=== PATIENT | male | born 1955 | race Caucasian/White ===

== ENCOUNTER 2016-12-28 06:14 | Emergency (ER) | payer OTHER | END 2016-12-28 06:20 | disposition left against medical advice (07) | LOC: ER1 06:14 | DX: R07.1 Chest pain on breathing (principal); Z79.82 Long term (current) use of aspirin; Z90.49 Acquired absence of other specified parts of digestive tract; Z88.2 Allergy status to sulfonamides | CPT/HCPCS: 36415; 99285 ==

== ENCOUNTER 2016-12-28 09:30 | Emergency (ER) | payer OTHER ==
[2016-12-28 10:30] LABS: HEMOGLOBIN 15.2 gm/dl (14.0-17.5); RED BLOOD COUNT 4.97 M/UL (4.20-5.50)
[2016-12-28 10:44] LABS: BUN/CREATININE RATIO 19 (0-10)
== END 2016-12-28 15:15 | disposition home or self-care (01) ==
LOC: ER1 09:30
PROVIDERS: Emergency Medicine
DX: R94.31 Abnormal electrocardiogram [ECG] [EKG] (principal); Z53.21 Procedure and treatment not carried out due to patient leaving prior to being seen by health care provider
CPT/HCPCS: 71010; 80053; 82550; 82553; 83874; 84484; 85025; 85379; 93005; J1885

== ENCOUNTER → 2020-05-24 | Outpatient (CLI) | payer BC, OTHER ==
[2020-05-24 10:13] LABS: HEMOGLOBIN 15.5 gm/dl (14.0-17.5); RED BLOOD COUNT 5.03 M/UL (4.20-5.50); WHITE BLOOD COUNT 5.3 K/UL (4.5-11.0)
[2020-05-24 10:35] LABS: BUN/CREATININE RATIO 14 (0-10); GAMMA GLUTAMYL TRANSPEPTIDASE 34 U/L (7-64)
== END ==
LOC: LAB 09:36
PROVIDERS: Transplant Surgery
DX: Z79.899 Other long term (current) drug therapy (principal); Z94.4 Liver transplant status
CPT/HCPCS: 36415; 80053; 82977; 83735; 85027

== ENCOUNTER → 2020-07-11 | Outpatient (CLI) | payer BC, OTHER ==
[2020-07-11 10:54] LABS: HEMOGLOBIN 15.1 gm/dl (14.0-17.5); RED BLOOD COUNT 4.98 M/UL (4.20-5.50); WHITE BLOOD COUNT 5.5 K/UL (4.5-11.0)
[2020-07-11 11:12] LABS: BUN/CREATININE RATIO 22 (0-10); GAMMA GLUTAMYL TRANSPEPTIDASE 28 U/L (7-64)
== END ==
LOC: LAB 09:45
PROVIDERS: Transplant Surgery
DX: Z48.23 Encounter for aftercare following liver transplant (principal); Z51.81 Encounter for therapeutic drug level monitoring; Z79.899 Other long term (current) drug therapy
CPT/HCPCS: 80053; 82977; 83735; 85027

== ENCOUNTER → 2020-12-19 | Outpatient (CLI) | payer BC ==
[2020-12-19 12:36] LABS: HEMOGLOBIN 15.9 gm/dl (14.0-17.5); RED BLOOD COUNT 5.12 M/UL (4.20-5.50); WHITE BLOOD COUNT 4.6 K/UL (4.5-11.0)
[2020-12-19 12:54] LABS: BUN/CREATININE RATIO 17 (0-10); GAMMA GLUTAMYL TRANSPEPTIDASE 22 U/L (7-64)
== END ==
LOC: LAB 10:37
PROVIDERS: Transplant Surgery
DX: Z48.23 Encounter for aftercare following liver transplant (principal); Z51.81 Encounter for therapeutic drug level monitoring; Z79.899 Other long term (current) drug therapy
CPT/HCPCS: 36415; 80053; 82977; 83735; 85027

== ENCOUNTER 2021-04-13 18:04 | Emergency (ER) | payer OTHER ==
[2021-04-13] MEDS ORDERED: CEPHALEXIN500 MG PO (20:03)
== END 2021-04-13 20:17 | disposition home or self-care (01) ==
LOC: ER1 18:04
DX: S51.812A Laceration without foreign body of left forearm, initial encounter (principal); Z23 Encounter for immunization; Z87.891 Personal history of nicotine dependence; X58.XXXA Exposure to other specified factors, initial encounter; Y92.89 Other specified places as the place of occurrence of the external cause; Y99.0 Civilian activity done for income or pay
CPT/HCPCS: 12032; 90471; 90715; 99283

== ENCOUNTER → 2021-04-21 | Outpatient (CLI) | payer OTHER ==
[~2021-04-21] MED LIST: CEPHALEXIN500 MG PO
== END ==
LOC: KOH-I 11:48
DX: M79.602 Pain in left arm (principal); M25.532 Pain in left wrist
CPT/HCPCS: 73090; 73110

== ENCOUNTER → 2021-07-28 | Outpatient (CLI) | payer BC ==
[2021-07-28 11:46] LABS: HEMOGLOBIN 14.8 gm/dl (14.0-17.5); RED BLOOD COUNT 4.81 M/UL (4.20-5.50)
[2021-07-28 12:08] LABS: BUN/CREATININE RATIO 18 (0-10); GAMMA GLUTAMYL TRANSPEPTIDASE 17 U/L (7-64)
== END ==
LOC: LAB 10:45
PROVIDERS: Transplant Surgery
DX: Z48.23 Encounter for aftercare following liver transplant (principal); Z79.899 Other long term (current) drug therapy
CPT/HCPCS: 36415; 80053; 82977; 83735; 85027